=== PATIENT | male | born 1965 | race Caucasian/White ===

== ENCOUNTER → 2018-07-31 | Outpatient (CLI) | payer BC ==
[~2018-07-31] MED LIST: GLUC-174 PO
== END ==
LOC: RT 08:26
PROVIDERS: ATTEND Family Medicine
DX: R06.00 Dyspnea, unspecified (principal)
CPT/HCPCS: 94060; 94726; 94729

== ENCOUNTER 2021-06-21 06:53 | Outpatient (CLI) | payer BC ==
[~2021-06-21] VITALS: Ht 185.4 cm; Wt 98.6 kg
[2021-06-21] MEDS ORDERED: MONT-40 PO (11:06)
[2021-06-21] MEDS ORDERED: ASPI-999 PO (11:06)
[2021-06-21] MEDS ORDERED: CETI10TA4 PO (11:06)
== END 2021-06-21 11:06 | disposition home or self-care (01) ==
LOC: PREOP 06:53
PROVIDERS: ATTEND Surgery
DX: Z01.818 Encounter for other preprocedural examination (principal)

== ENCOUNTER 2021-07-03 07:54 | Day surgery (SDC) | payer BC ==
[~2021-07-03] VITALS: Ht 185 cm; Wt 98.6 kg
[~2021-07-03 07:54] MED LIST changes: +ASPI-999 PO; +CETI10TA4 PO; +MONT-40 PO
[2021-07-03] MEDS ORDERED: LACTATED RINGERS 1,000 ML IV STA (07:57)
[2021-07-03] MEDS ORDERED: LACTATED RINGERS 1,000 ML IV ONE (08:00)
[2021-07-03 08:20] VITALS: BP 113/74
[2021-07-03] MEDS ORDERED: PROPOFOL INJECTION 50 ML IV ONE ×2 (09:21→09:39)
[2021-07-03] MEDS ORDERED: MIDAZOLAM 2 MG/2 ML (VERSED) VIAL ONE (09:21)
--- NOTE | 2021-07-03 09:58 | Discharge Inst-Simple/Standard ---
Discharge Inst-Standard Patient Instructions/Follow Up Plan of Care/Instructions/FU: 2 weeks Arlette Activity as Tolerated: Yes Discharge Diet: Regular Diet PATRICIA VEGA DO Jul 03, 2021 09:58
--- NOTE | 2021-07-03 09:58 | Progress Note-Post Operative ---
Post-Operative Progess Note Surgeon (s)/Gear Machine Operator General (s) Surgeon PATRICIA VEGA DO Gear Machine Operator General: none Pre-Operative Diagnosis rectal bleed, screening colonoscopy Post-Operative Diagnosis Colon polyp Procedure & Operative Findings Date of Procedure 07/03/21 Procedure Performed/Findings Colonoscopy with hot biopsy polypectomy x1 Anesthesia Type per GENERATION TECHNICIAN Estimated Blood Loss Estimated blood loss (mL): none Specimens/Packing Specimens Removed Sigmoid polyp x1 PATRICIA VEGA DO Jul 03, 2021 09:57
[2021-07-03 10:00] VITALS: BP 96/63
[2021-07-03 10:05] VITALS: BP 100/69
[2021-07-03 10:20] VITALS: BP 100/73
[2021-07-03 10:52] VITALS: BP 100/73
--- NOTE | 2021-07-03 14:05 | Anesthesia-General Post-Op ---
MAC Patient Condition Mental Status/LOC: Same as Preop Cardiovascular: Satisfactory Nausea/Vomiting: Absent Respiratory: Satisfactory Pain: Controlled Complications: Absent Post Op Complications Complications None Follow Up Care/Instructions Patient Instructions None needed. Anesthesiology Discharge Order Discharge Order Patient is doing well, no complaints, stable vital signs, no apparent adverse anesthesia problems. No complications reported per nursing. OSMANY MANZO CRNA Jul 03, 2021 14:05
--- NOTE | 2021-07-03 14:10 | OPERATIVE REPORT ---
DATE OF SERVICE: 07/03/2021 PREOPERATIVE DIAGNOSIS: Screening colonoscopy. POSTOPERATIVE DIAGNOSIS: Colon polyp, sigmoid. PROCEDURE: Colonoscopy with hot biopsy polypectomy x1. SURGEON: Patricia Chong DO ANESTHESIA: Per [facility] TRANSITION MGR. ESTIMATED BLOOD LOSS: None. COMPLICATIONS: None. INDICATIONS: The patient is a 55-year-old male needing screening colonoscopy. He understands risks and benefits of procedure and wished to proceed. Consent was signed in the chart. DESCRIPTION OF PROCEDURE: The patient was taken to endoscopy suite, placed in left lateral recumbent position. Timeout was performed. Digital rectal exam was performed. No palpable polyps, masses or ulcerations. Scope was inserted in the rectum and advanced all the way to cecum with minimal difficulty. Prep was adequate. Scope was slowly retracted back. No polyps, masses or ulcerations in the cecum, ascending, transverse, and descending colon. In sigmoid colon, a very small polyp, hot biopsy polypectomy was performed. Scope was then continuously retracted back into the rectum where it was also retroflexed noting no other pathology except for some slight internal hemorrhoidal disease. Scope was returned to its normal position, slowly withdrawn until completely removed. The patient tolerated procedure well without any complications, taken to recovery room in stable condition. RECOMMENDATIONS: I would recommend repeat colonoscopy in 5 years. Any issues before that be seen at that time. The patient will follow up on pathology in 2 weeks. Job ID: [id number] DocumentID: [id number] Dictated Date: 07/03/2021 10:02:30 Registered Pharmacy Technician Date: 07/03/2021 14:09:44 Dictated By: PATRICIA CHONG DO
== END 2021-07-03 10:58 | disposition home or self-care (01) ==
LOC: ENDO 07:54
PROVIDERS: ATTEND Surgery
DX: Z12.11 Encounter for screening for malignant neoplasm of colon (principal); K63.5 Polyp of colon; K64.8 Other hemorrhoids